=== PATIENT | female | born 1950 | race Caucasian/White ===

== ENCOUNTER 2018-04-21 05:20 | Inpatient (IN) | payer OTHER, MEDICARE, BC ==
[2018-04-21 05:52] LABS: ADD MAN DIFF? NO
[2018-04-21 05:55] LABS: WHITE BLOOD COUNT 14.7 10^3/ul (4.8-10.8)
[2018-04-21 05:55] LABS: ABNORMAL IP MESSAGE 1; BASOPHILS % 0.1 % (0.0-2.0); EOSINOPHILS # 0.1 10^3/ul (0.0-0.5); EOSINOPHILS % 0.7 % (0.0-7.0); HEMATOCRIT 27.8 % (37.0-47.0); LYMPHOCYTES # 0.4 10^3/ul (0.8-2.9); MEAN CORPUSCULAR HEMOGLOBIN 31.9 pg (29.0-33.0); MEAN CORPUSCULAR HGB CONC 32.4 g/dl (32.0-37.0); MEAN CORPUSCULAR VOLUME 98.6 fl (82.0-101.0); MEAN PLATELET VOLUME 9.7 fl (7.4-10.4); MONOCYTE # 0.6 10^3/ul (0.3-0.9); MONOCYTES % 4.2 % (0.0-11.0); NEUTROPHIL # 13.4 10^3/ul (1.6-7.5); NEUTROPHILS % 91.4 % (39.0-77.0); PLATELET COUNT 261 10^3/UL (140-415); RED BLOOD COUNT 2.82 10^6/ul (4.20-5.40); RED CELL DISTRIBUTION WIDTH 14.6 % (11.5-14.5)
[2018-04-21 06:04] LABS: POSITIVE DIFF @See below
[2018-04-21 06:20] LABS: ALANINE AMINOTRANSFERASE 53 IU/L (13-69); ALBUMIN 2.4 g/dl (3.3-4.9); ALKALINE PHOSPHATASE 92 IU/L (42-121); ANION GAP 6 (5-13); ASPARTATE AMINO TRANSFERASE 44 IU/L (15-46); BILIRUBIN,INDIRECT 0.3 mg/dl (0-1.1); BILIRUBIN,TOTAL 0.3 mg/dl (0.2-1.3); BLOOD UREA NITROGEN 62 mg/dl (7-20); CALCIUM 8.2 mg/dl (8.4-10.2); CARBON DIOXIDE 24 mmol/L (21-31); CHLORIDE 111 mmol/L (97-110); Estimated GFR 25 mL/min (>60); GLUCOSE 131 mg/dl (70-220); POTASSIUM 4.6 mmol/L (3.5-5.1); SODIUM 141 mmol/L (135-144); TOTAL PROTEIN 4.8 g/dl (6.1-8.1)
[2018-04-21 06:31] LABS: B-TYPE NATRIURETIC PEPTIDE 20000 PG/ML (0-125)
[2018-04-21] MEDS ORDERED: ASPIRIN 325 MG TAB (06:49)
[2018-04-21] MEDS: ASPIRIN 81 MG TAB PO (06:58)
[2018-04-21] MEDS: AMIODARONE 150MG/D5W BOLUS 100 ML IV (07:30)
[2018-04-21] MEDS: MAGNESIUM SULFATE 2 GM/50 ML 50 ML IVPB (07:30)
[2018-04-21] MEDS: SOD CHLORIDE 0.9% 1,000 ML IV (07:30)
[2018-04-21 09:10] LABS: CREATINE KINASE 90 IU/L (23-200)
[2018-04-21] MEDS: CEFTRIAXONE 1 GM/50 ML (PMX) 50 ML IVPB (09:15)
[2018-04-21 09:23] LABS: CK INDEX 4.1; CK-MB 3.69 ng/ml (0.0-2.4)
[2018-04-21] MEDS: AZITHROMYCIN 500MG/NS (PMX) 250 ML IVPB (09:45)
[2018-04-21] MEDS ORDERED: ONDANSETRON 4 MG INJ IV (13:00)
[2018-04-21] MEDS ORDERED: NACL 0.9% 3 ML SYG IV ×2 (13:00)
[2018-04-21] MEDS: DOCUSATE SODIUM 100 MG CAP PO (13:00)
[2018-04-21] MEDS: HEPARIN 5,000 UNIT/1 ML VIAL SC ×2 (15:09→21:44)
[2018-04-21] MEDS: INSULIN ASPART [NOVOLOG] 3 ML PEN SC ×2 (17:35→21:00)
[2018-04-21] MEDS: CLOPIDOGREL 75 MG TAB PO (19:25)
[2018-04-21] MEDS ORDERED: NON-FORMULARY/PATIENT OWN MED (Simvastatin* (Zocor*) 20 MG) PO (21:00)
[2018-04-21] MEDS: MONTELUKAST 10 MG TAB PO (21:31)
[2018-04-21] MEDS: traZODone 50 MG TAB PO (21:31)
[2018-04-21] MEDS: ATORVASTATIN 10 MG TAB PO (21:31)
[2018-04-21] MEDS: FAMOTIDINE 20 MG TAB PO (21:32)
[2018-04-22] MEDS ORDERED: DEXTROSE 50% 50 ML SYRINGE (00:21)
[2018-04-22] MEDS: DOCUSATE SODIUM 100 MG CAP PO ×2 (00:50→13:00)
[2018-04-22] MEDS: ACCU-CHEK XX ×19 (01:11→23:53)
[2018-04-22] MEDS: DEXTROSE 5%-0.45% NACL 1,000 ML IV (04:04)
[2018-04-22 05:03] LABS: ADD MAN DIFF? NO
[2018-04-22 05:13] LABS: BASOPHILS % 0.1 % (0.0-2.0); EOSINOPHILS # 0.3 10^3/ul (0.0-0.5); EOSINOPHILS % 3.4 % (0.0-7.0); HEMATOCRIT 26.3 % (37.0-47.0); HEMOGLOBIN 8.4 g/dl (12.0-16.0); LYMPHOCYTES # 0.8 10^3/ul (0.8-2.9); MEAN CORPUSCULAR HEMOGLOBIN 31.7 pg (29.0-33.0); MEAN CORPUSCULAR HGB CONC 31.9 g/dl (32.0-37.0); MEAN CORPUSCULAR VOLUME 99.2 fl (82.0-101.0); MEAN PLATELET VOLUME 9.6 fl (7.4-10.4); MONOCYTE # 0.7 10^3/ul (0.3-0.9); MONOCYTES % 8.1 % (0.0-11.0); NEUTROPHIL # 6.6 10^3/ul (1.6-7.5); NEUTROPHILS % 78.9 % (39.0-77.0); PLATELET COUNT 214 10^3/UL (140-415); RED BLOOD COUNT 2.65 10^6/ul (4.20-5.40); RED CELL DISTRIBUTION WIDTH 14.9 % (11.5-14.5)
[2018-04-22 05:13] LABS: WHITE BLOOD COUNT 8.3 10^3/ul (4.8-10.8)
[2018-04-22 05:14] LABS: HEMOGLOBIN A1C 6.3 % (0-5.9)
[2018-04-22 05:29] LABS: ALANINE AMINOTRANSFERASE 54 IU/L (13-69); ALBUMIN 2.4 g/dl (3.3-4.9); ALBUMIN/GLOBULIN RATIO 1.09; ALKALINE PHOSPHATASE 106 IU/L (42-121); ANION GAP 1 (5-13); ASPARTATE AMINO TRANSFERASE 32 IU/L (15-46); BLOOD UREA NITROGEN 55 mg/dl (7-20); CALCIUM 8.3 mg/dl (8.4-10.2); CARBON DIOXIDE 26 mmol/L (21-31); CHLORIDE 114 mmol/L (97-110); CHOL/HDL RATIO 1.7 RATIO; CHOLESTEROL 83 mg/dl (100-200); CREATININE 2.17 mg/dl (0.44-1.00); Estimated GFR 23 mL/min (>60); GLUCOSE 60 mg/dl (70-220); HDL CHOLESTEROL 47 mg/dl (35-98); LDL CHOLESTEROL,CALCULATED 20 mg/dl; MAGNESIUM 2.3 mg/dl (1.7-2.5); POTASSIUM 4.1 mmol/L (3.5-5.1); SODIUM 141 mmol/L (135-144); TOTAL PROTEIN 4.6 g/dl (6.1-8.1); TRIGLYCERIDES 79 mg/dl (0-149)
[2018-04-22] MEDS ORDERED: LEVOTHYROXINE 50 MCG TAB (05:32)
[2018-04-22] MEDS: HEPARIN 5,000 UNIT/1 ML VIAL SC ×3 (05:57→21:35)
[2018-04-22] MEDS: LEVOTHYROXINE 50 MCG TAB PO (06:01)
[2018-04-22] MEDS ORDERED: DEXTROSE 50% 50 ML SYRINGE IV (07:30)
[2018-04-22] MEDS ORDERED: GLUCOSE GEL 15 GRAM TUBE BUCCAL (07:30)
[2018-04-22] MEDS ORDERED: GLUCOSE GEL 15 GRAM TUBE PO ×2 (07:30)
[2018-04-22] MEDS ORDERED: GLUCAGON 1 MG INJ IM (07:30)
[2018-04-22] MEDS: INSULIN ASPART [NOVOLOG] 3 ML PEN SC ×4 (07:35→20:32)
[2018-04-22] MEDS: ASPIRIN (EC) 81 MG TAB PO (08:38)
[2018-04-22] MEDS: CLOPIDOGREL 75 MG TAB PO (08:38)
[2018-04-22] MEDS ORDERED: NON-FORMULARY/PATIENT OWN MED (Lactobacillus Combo No.11 (Probiotic) 1 CAP) PO (09:00)
[2018-04-22 10:33] LABS: IRON 25 ug/dl (35-150)
[2018-04-22] MEDS: TIOTROPIUM 18 MCG CAPSULE INHA DEV INH (10:33)
[2018-04-22] MEDS: LACTOBACILLUS RHAMNOSUS CAP PO (10:33)
[2018-04-22] MEDS: FLUTICASONE 0.05% 16 GM NAS SPRAY NASAL (10:33)
[2018-04-22 10:43] LABS: % IRON SATURATION 12 % SAT (22-52); TOTAL IRON BINDING CAPACITY 211 ug/dl (241-421)
[2018-04-22] MEDS: ATORVASTATIN 10 MG TAB PO (20:29)
[2018-04-22] MEDS: SOD FERRIC GLUC COMPLX 125 MG in SOD CHLORIDE 0.9% 100 ML IVPB (20:29)
[2018-04-22] MEDS: FAMOTIDINE 20 MG TAB PO (20:29)
[2018-04-22] MEDS: MONTELUKAST 10 MG TAB PO (20:29)
[2018-04-23] MEDS: ACCU-CHEK XX ×9 (01:19→08:30)
[2018-04-23] MEDS: DOCUSATE SODIUM 100 MG CAP PO ×3 (01:32→20:49)
[2018-04-23] MEDS ORDERED: HEPARIN 5,000 UNIT/1 ML VIAL SC (02:00)
[2018-04-23 05:11] LABS: ADD MAN DIFF? NO
[2018-04-23 05:28] LABS: WHITE BLOOD COUNT 8.3 10^3/ul (4.8-10.8)
[2018-04-23 05:28] LABS: BASOPHILS % 0.1 % (0.0-2.0); EOSINOPHILS # 0.3 10^3/ul (0.0-0.5); EOSINOPHILS % 3.5 % (0.0-7.0); HEMOGLOBIN 8.7 g/dl (12.0-16.0); LYMPHOCYTES # 0.7 10^3/ul (0.8-2.9); LYMPHOCYTES % 8.8 % (15.0-51.0); MEAN CORPUSCULAR HEMOGLOBIN 31.5 pg (29.0-33.0); MEAN CORPUSCULAR HGB CONC 31.1 g/dl (32.0-37.0); MEAN CORPUSCULAR VOLUME 101.4 fl (82.0-101.0); MEAN PLATELET VOLUME 9.7 fl (7.4-10.4); MONOCYTE # 0.7 10^3/ul (0.3-0.9); MONOCYTES % 8.5 % (0.0-11.0); NEUTROPHIL # 6.6 10^3/ul (1.6-7.5); NEUTROPHILS % 78.7 % (39.0-77.0); PLATELET COUNT 222 10^3/UL (140-415); RED BLOOD COUNT 2.76 10^6/ul (4.20-5.40); RED CELL DISTRIBUTION WIDTH 14.7 % (11.5-14.5)
[2018-04-23] MEDS: LEVOTHYROXINE 50 MCG TAB PO (06:03)
[2018-04-23 06:04] LABS: ANION GAP 6 (5-13); BLOOD UREA NITROGEN 56 mg/dl (7-20); CALCIUM 8.6 mg/dl (8.4-10.2); CARBON DIOXIDE 23 mmol/L (21-31); CHLORIDE 111 mmol/L (97-110); CREATININE 2.25 mg/dl (0.44-1.00); Estimated GFR 22 mL/min (>60); GLUCOSE 152 mg/dl (70-220); MAGNESIUM 2.2 mg/dl (1.7-2.5); POTASSIUM 4.6 mmol/L (3.5-5.1); SODIUM 140 mmol/L (135-144)
[2018-04-23] MEDS: FLUTICASONE 0.05% 16 GM NAS SPRAY NASAL (08:15)
[2018-04-23] MEDS: TIOTROPIUM 18 MCG CAPSULE INHA DEV INH (08:17)
[2018-04-23] MEDS: LACTOBACILLUS RHAMNOSUS CAP PO (08:27)
[2018-04-23] MEDS: ASPIRIN (EC) 81 MG TAB PO (08:28)
[2018-04-23] MEDS: CLOPIDOGREL 75 MG TAB PO (08:28)
[2018-04-23] MEDS: HEPARIN 5,000 UNIT/1 ML VIAL SC ×2 (08:29→20:59)
[2018-04-23] MEDS: INSULIN ASPART [NOVOLOG] 3 ML PEN SC ×6 (08:30→20:49)
[2018-04-23 10:01] LABS: CREATININE,URINE RANDOM 139.44 mg/dl (20-320)
[2018-04-23 10:01] LABS: SODIUM,URINE RANDOM 25 mmol/L (30-90)
[2018-04-23] MEDS: SOD FERRIC GLUC COMPLX 125 MG in SOD CHLORIDE 0.9% 100 ML IVPB (17:35)
[2018-04-23] MEDS: ATORVASTATIN 10 MG TAB PO (20:48)
[2018-04-23] MEDS: FAMOTIDINE 20 MG TAB PO (20:48)
[2018-04-23] MEDS: MONTELUKAST 10 MG TAB PO (20:48)
[2018-04-23 22:07] LABS: ADD UMIC YES; UR ASCORBIC ACID NEGATIVE (NEGATIVE); UR BACTERIA FEW /HPF (NONE SEEN); UR BILIRUBIN (Dip) NEGATIVE (NEGATIVE); UR BLOOD (Dip) 2+ mg/dL (NEGATIVE); UR CLARITY SLIGHTLY CLOUDY (CLEAR); UR COLOR YELLOW (YELLOW); UR GLUCOSE (Dip) NEGATIVE (NEGATIVE); UR KETONES (Dip) TRACE mg/dL (NEGATIVE); UR LEUKOCYTE ESTERASE (Dip) 1+ Leu/ul (NEGATIVE); UR NITRITE (Dip) NEGATIVE (NEGATIVE); UR RBC 2 /HPF (0-5); UR SPECIFIC GRAVITY (Dip) 1.018 (1.003-1.030); UR SQUAMOUS EPITHELIAL CELL FEW /HPF (FEW); UR TOTAL PROTEIN (Dip) 2+ mg/dl (NEGATIVE); UR UROBILINOGEN (Dip) NEGATIVE (NEGATIVE); UR WBC 56 /HPF (0-5)
[2018-04-23] MEDS: traZODone 50 MG TAB PO (23:21)
[2018-04-24] MEDS: LEVOTHYROXINE 50 MCG TAB PO (05:15)
[2018-04-24 07:12] LABS: ADD MAN DIFF? NO
[2018-04-24 07:18] LABS: BASOPHILS % 0.3 % (0.0-2.0); EOSINOPHILS # 0.3 10^3/ul (0.0-0.5); EOSINOPHILS % 4.2 % (0.0-7.0); HEMATOCRIT 26.7 % (37.0-47.0); HEMOGLOBIN 8.3 g/dl (12.0-16.0); LYMPHOCYTES % 12.3 % (15.0-51.0); MEAN CORPUSCULAR HEMOGLOBIN 31.2 pg (29.0-33.0); MEAN CORPUSCULAR HGB CONC 31.1 g/dl (32.0-37.0); MEAN CORPUSCULAR VOLUME 100.4 fl (82.0-101.0); MEAN PLATELET VOLUME 9.3 fl (7.4-10.4); MONOCYTE # 0.6 10^3/ul (0.3-0.9); MONOCYTES % 7.1 % (0.0-11.0); NEUTROPHIL # 5.8 10^3/ul (1.6-7.5); NEUTROPHILS % 75.7 % (39.0-77.0); PLATELET COUNT 209 10^3/UL (140-415); RED BLOOD COUNT 2.66 10^6/ul (4.20-5.40); RED CELL DISTRIBUTION WIDTH 14.7 % (11.5-14.5)
[2018-04-24 07:18] LABS: WHITE BLOOD COUNT 7.7 10^3/ul (4.8-10.8)
[2018-04-24 07:54] LABS: PHOSPHORUS 3.5 mg/dl (2.5-4.9)
[2018-04-24 08:12] LABS: ANION GAP 4 (5-13); BLOOD UREA NITROGEN 52 mg/dl (7-20); CALCIUM 8.7 mg/dl (8.4-10.2); CARBON DIOXIDE 24 mmol/L (21-31); CHLORIDE 112 mmol/L (97-110); CREATININE 1.98 mg/dl (0.44-1.00); Estimated GFR 25 mL/min (>60); GLUCOSE 177 mg/dl (70-220); POTASSIUM 4.4 mmol/L (3.5-5.1); SODIUM 140 mmol/L (135-144)
[2018-04-24] MEDS: FLUTICASONE 0.05% 16 GM NAS SPRAY NASAL (08:26)
[2018-04-24] MEDS: TIOTROPIUM 18 MCG CAPSULE INHA DEV INH (08:27)
[2018-04-24] MEDS: INSULIN ASPART [NOVOLOG] 3 ML PEN SC ×7 (08:28→21:00)
[2018-04-24] MEDS: INSULIN GLARGINE [LANTus] (100 UNITS/ML) SYG SC (08:29)
[2018-04-24] MEDS: DOCUSATE SODIUM 100 MG CAP PO ×2 (08:30→21:23)
[2018-04-24] MEDS: ASPIRIN (EC) 81 MG TAB PO (08:30)
[2018-04-24] MEDS: LACTOBACILLUS RHAMNOSUS CAP PO (08:30)
[2018-04-24] MEDS: CLOPIDOGREL 75 MG TAB PO (08:30)
[2018-04-24] MEDS: HEPARIN 5,000 UNIT/1 ML VIAL SC ×2 (08:31→21:32)
[2018-04-24] MEDS: SOD FERRIC GLUC COMPLX 125 MG in SOD CHLORIDE 0.9% 100 ML IVPB (12:56)
[2018-04-24 17:01] LABS: CREATININE, RANDOM URINE 132 mg/dL (20-275); MICROALBUMIN 111.9 mg/dL; MICROALBUMIN/CREATININE RATIO 848 (<30)
[2018-04-24] MEDS: ATORVASTATIN 10 MG TAB PO (21:23)
[2018-04-24] MEDS: FAMOTIDINE 20 MG TAB PO (21:23)
[2018-04-24] MEDS: MONTELUKAST 10 MG TAB PO (21:23)
[2018-04-25 05:52] LABS: ADD MAN DIFF? NO
[2018-04-25 05:57] LABS: WHITE BLOOD COUNT 8.7 10^3/ul (4.8-10.8)
[2018-04-25 05:57] LABS: BASOPHILS % 0.3 % (0.0-2.0); EOSINOPHILS # 0.3 10^3/ul (0.0-0.5); EOSINOPHILS % 3.9 % (0.0-7.0); HEMATOCRIT 27.7 % (37.0-47.0); HEMOGLOBIN 8.8 g/dl (12.0-16.0); LYMPHOCYTES % 11.6 % (15.0-51.0); MEAN CORPUSCULAR HEMOGLOBIN 31.9 pg (29.0-33.0); MEAN CORPUSCULAR HGB CONC 31.8 g/dl (32.0-37.0); MEAN CORPUSCULAR VOLUME 100.4 fl (82.0-101.0); MEAN PLATELET VOLUME 9.7 fl (7.4-10.4); MONOCYTE # 0.7 10^3/ul (0.3-0.9); MONOCYTES % 7.8 % (0.0-11.0); NEUTROPHIL # 6.6 10^3/ul (1.6-7.5); NEUTROPHILS % 75.8 % (39.0-77.0); PLATELET COUNT 230 10^3/UL (140-415); RED BLOOD COUNT 2.76 10^6/ul (4.20-5.40); RED CELL DISTRIBUTION WIDTH 14.7 % (11.5-14.5)
[2018-04-25] MEDS: LEVOTHYROXINE 50 MCG TAB PO (06:33)
[2018-04-25 06:39] LABS: ANION GAP 3 (5-13); BLOOD UREA NITROGEN 48 mg/dl (7-20); CALCIUM 8.8 mg/dl (8.4-10.2); CARBON DIOXIDE 26 mmol/L (21-31); CHLORIDE 113 mmol/L (97-110); CREATININE 1.92 mg/dl (0.44-1.00); Estimated GFR 26 mL/min (>60); GLUCOSE 74 mg/dl (70-220); POTASSIUM 4.2 mmol/L (3.5-5.1); SODIUM 142 mmol/L (135-144)
[2018-04-25] MEDS: INSULIN ASPART [NOVOLOG] 3 ML PEN SC ×7 (08:00→21:00)
[2018-04-25] MEDS: INSULIN GLARGINE [LANTus] (100 UNITS/ML) SYG SC (08:04)
[2018-04-25] MEDS: HEPARIN 5,000 UNIT/1 ML VIAL SC ×2 (08:05→20:37)
[2018-04-25] MEDS: ASPIRIN (EC) 81 MG TAB PO (08:05)
[2018-04-25] MEDS: DOCUSATE SODIUM 100 MG CAP PO ×2 (08:29→20:21)
[2018-04-25] MEDS: CLOPIDOGREL 75 MG TAB PO (08:29)
[2018-04-25] MEDS: LACTOBACILLUS RHAMNOSUS CAP PO (08:29)
[2018-04-25] MEDS: TIOTROPIUM 18 MCG CAPSULE INHA DEV INH (08:38)
[2018-04-25] MEDS: FLUTICASONE 0.05% 16 GM NAS SPRAY NASAL (08:38)
[2018-04-25] MEDS: SOD FERRIC GLUC COMPLX 125 MG in SOD CHLORIDE 0.9% 100 ML IVPB (13:10)
[2018-04-25] MEDS: ALBUTEROL 0.083% (NEB) 2.5 MG/3 ML AMP NEB (13:55)
[2018-04-25] MEDS: ARFORMOTEROL TARTRATE 15MCG/2 ML AMP NEB ×2 (15:00→20:52)
[2018-04-25] MEDS: FAMOTIDINE 20 MG TAB PO (20:21)
[2018-04-25] MEDS: MONTELUKAST 10 MG TAB PO (20:21)
[2018-04-25] MEDS: ATORVASTATIN 10 MG TAB PO (20:21)
[2018-04-25] MEDS: hydrALAzine 20 MG INJ IV (21:28)
[2018-04-26] MEDS: LEVOTHYROXINE 50 MCG TAB PO (06:31)
[2018-04-26 06:47] LABS: ANION GAP 0 (5-13); BLOOD UREA NITROGEN 41 mg/dl (7-20); CALCIUM 8.9 mg/dl (8.4-10.2); CARBON DIOXIDE 26 mmol/L (21-31); CHLORIDE 117 mmol/L (97-110); Estimated GFR 28 mL/min (>60); GLUCOSE 102 mg/dl (70-220); MAGNESIUM 1.8 mg/dl (1.7-2.5); PHOSPHORUS 3.1 mg/dl (2.5-4.9); POTASSIUM 4.4 mmol/L (3.5-5.1); SODIUM 143 mmol/L (135-144)
[2018-04-26] MEDS: INSULIN ASPART [NOVOLOG] 3 ML PEN SC ×7 (08:00→21:00)
[2018-04-26] MEDS: ARFORMOTEROL TARTRATE 15MCG/2 ML AMP NEB ×2 (08:06→19:25)
[2018-04-26] MEDS: INSULIN GLARGINE [LANTus] (100 UNITS/ML) SYG SC (08:08)
[2018-04-26] MEDS: HEPARIN 5,000 UNIT/1 ML VIAL SC ×2 (08:09→21:26)
[2018-04-26] MEDS: CLOPIDOGREL 75 MG TAB PO (08:09)
[2018-04-26] MEDS: LACTOBACILLUS RHAMNOSUS CAP PO (08:09)
[2018-04-26] MEDS: ASPIRIN (EC) 81 MG TAB PO (08:09)
[2018-04-26] MEDS: DOCUSATE SODIUM 100 MG CAP PO ×2 (08:09→21:23)
[2018-04-26] MEDS: FLUTICASONE 0.05% 16 GM NAS SPRAY NASAL (08:10)
[2018-04-26] MEDS: TIOTROPIUM 18 MCG CAPSULE INHA DEV INH (09:30)
[2018-04-26] MEDS: SOD FERRIC GLUC COMPLX 125 MG in SOD CHLORIDE 0.9% 100 ML IVPB (12:36)
[2018-04-26] MEDS: hydrALAzine 20 MG INJ IV (14:45)
[2018-04-26 15:29] LABS: ADD MAN DIFF? NO
[2018-04-26 15:30] LABS: BASOPHIL # 0.1 10^3/ul (0.0-0.1); BASOPHILS % 0.5 % (0.0-2.0); EOSINOPHILS # 0.4 10^3/ul (0.0-0.5); EOSINOPHILS % 3.3 % (0.0-7.0); HEMATOCRIT 30.2 % (37.0-47.0); MEAN CORPUSCULAR HGB CONC 29.8 g/dl (32.0-37.0); MEAN CORPUSCULAR VOLUME 104.1 fl (82.0-101.0); MEAN PLATELET VOLUME 9.4 fl (7.4-10.4); MONOCYTE # 0.7 10^3/ul (0.3-0.9); MONOCYTES % 6.5 % (0.0-11.0); NEUTROPHIL # 7.5 10^3/ul (1.6-7.5); NEUTROPHILS % 70.3 % (39.0-77.0); PLATELET COUNT 234 10^3/UL (140-415); RED CELL DISTRIBUTION WIDTH 15.3 % (11.5-14.5)
[2018-04-26 15:30] LABS: WHITE BLOOD COUNT 10.7 10^3/ul (4.8-10.8)
[2018-04-26 15:31] LABS: AADO2 Arterial 158.7 mmHg (7.0-24.0); Allen Test ACCEPTAB; Arterial Base Excess -8.5 mmol/L (-3.0-3); Arterial Blood Gas Oxygen Sat 98.5 mmHG (95.0-98.0); Arterial COHb 0.3 % (0.0-3.0); Arterial Fraction of Oxyhgb 97.9 % (93.0-99.0); Arterial HCO3 18.7 mmol/L (22.0-26.0); Arterial MetHb 0.3 % (0.0-1.5); Arterial pCO2 45.8 mmhg (35-45); MODE MASK - SIMPLE; Site Right Radial
[2018-04-26] MEDS: ALBUTEROL 0.083% (NEB) 2.5 MG/3 ML AMP NEB ×2 (15:41→20:31)
[2018-04-26] MEDS: LORAZEPAM 2 MG INJ IV (15:48)
[2018-04-26] MEDS: FUROSEMIDE 20 MG INJ IV (15:49)
[2018-04-26 15:50] LABS: ALANINE AMINOTRANSFERASE 38 IU/L (13-69); ALBUMIN 2.7 g/dl (3.3-4.9); ALBUMIN/GLOBULIN RATIO 1.22; ALKALINE PHOSPHATASE 103 IU/L (42-121); ANION GAP 9 (5-13); ASPARTATE AMINO TRANSFERASE 37 IU/L (15-46); BILIRUBIN,INDIRECT 0.1 mg/dl (0-1.1); BILIRUBIN,TOTAL 0.1 mg/dl (0.2-1.3); BLOOD UREA NITROGEN 52 mg/dl (7-20); CALCIUM 9.1 mg/dl (8.4-10.2); CARBON DIOXIDE 19 mmol/L (21-31); CHLORIDE 115 mmol/L (97-110); CREATININE 1.77 mg/dl (0.44-1.00); Estimated GFR 29 mL/min (>60); GLUCOSE 144 mg/dl (70-220); POTASSIUM 5.6 mmol/L (3.5-5.1); SODIUM 143 mmol/L (135-144); TOTAL PROTEIN 4.9 g/dl (6.1-8.1)
[2018-04-26] MEDS ORDERED: DEXTROSE 50% 50 ML SYRINGE IV (16:30)
[2018-04-26] MEDS: INSULIN REGULAR, HUMAN 100 UNIT/1 ML 3ML VIAL IVP (17:55)
[2018-04-26] MEDS: DEXTROSE 50% 50 ML SYRINGE IV ×2 (17:56→21:24)
[2018-04-26] MEDS: FAMOTIDINE 20 MG TAB PO (21:23)
[2018-04-26] MEDS: ATORVASTATIN 10 MG TAB PO (21:23)
[2018-04-26] MEDS: MONTELUKAST 10 MG TAB PO (21:23)
[2018-04-26] MEDS: ALBUTEROL 0.083% (NEB) 2.5 MG/3 ML AMP HHN (21:34)
[2018-04-26] MEDS: SODIUM POLYSTYRENE 15 GM KIT (POWDER + SORBITOL) GTB (21:41)
[2018-04-27] MEDS: LEVOTHYROXINE 50 MCG TAB PO (07:04)
[2018-04-27 07:16] LABS: ALBUMIN 2.5 g/dl (3.3-4.9); ANION GAP 0 (5-13); BLOOD UREA NITROGEN 56 mg/dl (7-20); CALCIUM 8.9 mg/dl (8.4-10.2); CARBON DIOXIDE 28 mmol/L (21-31); CHLORIDE 117 mmol/L (97-110); CREATININE 2.01 mg/dl (0.44-1.00); GLUCOSE 52 mg/dl (70-220); MAGNESIUM 1.8 mg/dl (1.7-2.5); PHOSPHORUS 3.3 mg/dl (2.5-4.9); POTASSIUM 4.1 mmol/L (3.5-5.1); SODIUM 145 mmol/L (135-144)
[2018-04-27] MEDS: INSULIN ASPART [NOVOLOG] 3 ML PEN SC ×7 (08:31→20:51)
[2018-04-27] MEDS: LACTOBACILLUS RHAMNOSUS CAP PO (08:41)
[2018-04-27] MEDS: ASPIRIN (EC) 81 MG TAB PO (08:42)
[2018-04-27] MEDS: TIOTROPIUM 18 MCG CAPSULE INHA DEV INH (08:42)
[2018-04-27] MEDS: CLOPIDOGREL 75 MG TAB PO (08:43)
[2018-04-27] MEDS: FLUTICASONE 0.05% 16 GM NAS SPRAY NASAL (08:43)
[2018-04-27] MEDS: HEPARIN 5,000 UNIT/1 ML VIAL SC ×2 (08:51→22:02)
[2018-04-27] MEDS: INSULIN GLARGINE [LANTus] (100 UNITS/ML) SYG SC (08:52)
[2018-04-27] MEDS: DOCUSATE SODIUM 100 MG CAP PO ×2 (08:52→20:45)
[2018-04-27] MEDS: ARFORMOTEROL TARTRATE 15MCG/2 ML AMP NEB ×2 (09:09→19:42)
[2018-04-27] MEDS: LACTATED RINGER'S 500 ML IV (11:52)
[2018-04-27] MEDS: ATORVASTATIN 10 MG TAB PO (20:46)
[2018-04-27] MEDS: FAMOTIDINE 20 MG TAB PO (20:46)
[2018-04-27] MEDS: MONTELUKAST 10 MG TAB PO (20:46)
[2018-04-28] MEDS: LEVOTHYROXINE 50 MCG TAB PO (06:09)
[2018-04-28 06:11] LABS: ADD MAN DIFF? NO
[2018-04-28 06:24] LABS: WHITE BLOOD COUNT 5.9 10^3/ul (4.8-10.8)
[2018-04-28 06:24] LABS: ABNORMAL IP MESSAGE 1; BASOPHILS % 0.2 % (0.0-2.0); EOSINOPHILS # 0.2 10^3/ul (0.0-0.5); EOSINOPHILS % 3.9 % (0.0-7.0); HEMATOCRIT 21.7 % (37.0-47.0); LYMPHOCYTES # 0.9 10^3/ul (0.8-2.9); LYMPHOCYTES % 15.7 % (15.0-51.0); MEAN CORPUSCULAR HGB CONC 30.4 g/dl (32.0-37.0); MEAN CORPUSCULAR VOLUME 105.3 fl (82.0-101.0); MEAN PLATELET VOLUME 9.3 fl (7.4-10.4); MONOCYTE # 0.5 10^3/ul (0.3-0.9); MONOCYTES % 8.1 % (0.0-11.0); NEUTROPHIL # 4.2 10^3/ul (1.6-7.5); NEUTROPHILS % 71.8 % (39.0-77.0); PLATELET COUNT 159 10^3/UL (140-415); RED BLOOD COUNT 2.06 10^6/ul (4.20-5.40)
[2018-04-28 06:33] LABS: HEMOGLOBIN 6.6 g/dl (12.0-16.0); POSITIVE DIFF @See below
[2018-04-28 06:35] LABS: ALANINE AMINOTRANSFERASE 47 IU/L (13-69); ALBUMIN 2.2 g/dl (3.3-4.9); ALBUMIN/GLOBULIN RATIO 1.04; ALKALINE PHOSPHATASE 80 IU/L (42-121); ANION GAP -3 (5-13); ASPARTATE AMINO TRANSFERASE 26 IU/L (15-46); BILIRUBIN,INDIRECT 0.1 mg/dl (0-1.1); BILIRUBIN,TOTAL 0.1 mg/dl (0.2-1.3); BLOOD UREA NITROGEN 50 mg/dl (7-20); CALCIUM 8.7 mg/dl (8.4-10.2); CARBON DIOXIDE 28 mmol/L (21-31); CHLORIDE 117 mmol/L (97-110); CREATININE 2.03 mg/dl (0.44-1.00); Estimated GFR 24 mL/min (>60); GLUCOSE 112 mg/dl (70-220); POTASSIUM 4.3 mmol/L (3.5-5.1); SODIUM 142 mmol/L (135-144); TOTAL PROTEIN 4.3 g/dl (6.1-8.1)
[2018-04-28] MEDS: INSULIN ASPART [NOVOLOG] 3 ML PEN SC ×7 (07:55→20:44)
[2018-04-28 08:04] LABS: BAND NEUTROPHILS #M 0.2 10^3/ul (0.0-0.6); BAND NEUTROPHILS % (M) 5 % (0-4); BASOPHILS % (M) 1 % (0-2); EOSINOPHILS % (M) 2 % (0-7); LYMPHOCYTES #M 0.7 10^3/ul (0.8-2.9); LYMPHOCYTES % (M) 13 % (15-51); MONOCYTES % (M) 1 % (0-11); OVALOCYTES 1+ (0-0); PLATELET ESTIMATE NORMAL; POIKILOCYTOSIS 1+ (0-0); POLYCHROMASIA 2+ (0-0); REACTIVE LYMPHOCYTES% (M) 1 % (0-0); SEG NEUT #M 4.6 10^3/ul (1.6-7.5); SEGMENTED NEUTROPHILS (M) % 77 % (39-77); SMUDGE%M 6 % (0-0)
[2018-04-28] MEDS: TIOTROPIUM 18 MCG CAPSULE INHA DEV INH (08:35)
[2018-04-28] MEDS: FLUTICASONE 0.05% 16 GM NAS SPRAY NASAL (08:35)
[2018-04-28] MEDS: LACTOBACILLUS RHAMNOSUS CAP PO (08:35)
[2018-04-28] MEDS: DOCUSATE SODIUM 100 MG CAP PO ×2 (08:35→20:29)
[2018-04-28] MEDS: ASPIRIN (EC) 81 MG TAB PO (08:36)
[2018-04-28] MEDS: CLOPIDOGREL 75 MG TAB PO (08:36)
[2018-04-28] MEDS: INSULIN GLARGINE [LANTus] (100 UNITS/ML) SYG SC (08:40)
[2018-04-28] MEDS: HEPARIN 5,000 UNIT/1 ML VIAL SC ×2 (08:44→20:43)
[2018-04-28 09:10] LABS: PATH REVIEW? YES
[2018-04-28] MEDS: ARFORMOTEROL TARTRATE 15MCG/2 ML AMP NEB ×2 (09:24→20:46)
[2018-04-28] MEDS: SOD CHLORIDE 0.9% 250 ML IV* (09:33)
[2018-04-28] MEDS: EPOETIN 10000 UNITS/1 ML INJ (ESRD) SC (12:04)
[2018-04-28 12:48] LABS: IMMEDIATE SPIN CROSSMATCH 1 2
[2018-04-28 16:35] LABS: OCCULT BLOOD STOOL POSITIVE (NEGATIVE)
[2018-04-28] MEDS: MONTELUKAST 10 MG TAB PO (20:29)
[2018-04-28] MEDS: FAMOTIDINE 20 MG TAB PO (20:29)
[2018-04-28] MEDS: ATORVASTATIN 10 MG TAB PO (20:30)
[2018-04-28] MEDS: hydrALAzine 20 MG INJ IV (20:30)
[2018-04-28] MEDS: CEFEPIME 1GM/50 ML (PMX) 50 ML IVPB (20:31)
[2018-04-29] MEDS: ACETAMINOPHEN 325 MG TAB PO (01:11)
[2018-04-29] MEDS: ALBUTEROL 0.083% (NEB) 2.5 MG/3 ML AMP NEB (02:42)
[2018-04-29] MEDS: PANTOPRAZOLE 40 MG INJ IV ×2 (05:16→17:29)
[2018-04-29] MEDS: LEVOTHYROXINE 50 MCG TAB PO (06:21)
[2018-04-29] MEDS: INSULIN ASPART [NOVOLOG] 3 ML PEN SC ×7 (07:39→20:36)
[2018-04-29 07:56] LABS: ADD MAN DIFF? NO
[2018-04-29 08:08] LABS: BASOPHILS % 0.5 % (0.0-2.0); EOSINOPHILS # 0.2 10^3/ul (0.0-0.5); EOSINOPHILS % 3.8 % (0.0-7.0); HEMATOCRIT 30.9 % (37.0-47.0); HEMOGLOBIN 9.8 g/dl (12.0-16.0); LYMPHOCYTES # 0.9 10^3/ul (0.8-2.9); LYMPHOCYTES % 14.1 % (15.0-51.0); MEAN CORPUSCULAR HEMOGLOBIN 30.7 pg (29.0-33.0); MEAN CORPUSCULAR HGB CONC 31.7 g/dl (32.0-37.0); MEAN CORPUSCULAR VOLUME 96.9 fl (82.0-101.0); MEAN PLATELET VOLUME 9.7 fl (7.4-10.4); MONOCYTE # 0.6 10^3/ul (0.3-0.9); MONOCYTES % 9.2 % (0.0-11.0); NEUTROPHIL # 4.3 10^3/ul (1.6-7.5); NEUTROPHILS % 71.9 % (39.0-77.0); PLATELET COUNT 146 10^3/UL (140-415); RED BLOOD COUNT 3.19 10^6/ul (4.20-5.40); RED CELL DISTRIBUTION WIDTH 18.6 % (11.5-14.5)
[2018-04-29] MEDS: LACTOBACILLUS RHAMNOSUS CAP PO (08:33)
[2018-04-29] MEDS: DOCUSATE SODIUM 100 MG CAP PO ×2 (08:33→20:17)
[2018-04-29] MEDS: TIOTROPIUM 18 MCG CAPSULE INHA DEV INH (08:34)
[2018-04-29] MEDS: FLUTICASONE 0.05% 16 GM NAS SPRAY NASAL (08:34)
[2018-04-29] MEDS: INSULIN GLARGINE [LANTus] (100 UNITS/ML) SYG SC (08:36)
[2018-04-29] MEDS: HEPARIN 5,000 UNIT/1 ML VIAL SC ×2 (08:39→20:29)
[2018-04-29 08:40] LABS: ALBUMIN 2.3 g/dl (3.3-4.9); ANION GAP 2 (5-13); BLOOD UREA NITROGEN 52 mg/dl (7-20); CALCIUM 8.8 mg/dl (8.4-10.2); CARBON DIOXIDE 26 mmol/L (21-31); CHLORIDE 115 mmol/L (97-110); CREATINE KINASE < 20 IU/L (23-200); CREATININE 1.94 mg/dl (0.44-1.00); GLUCOSE 128 mg/dl (70-220); PHOSPHORUS 3.3 mg/dl (2.5-4.9); POTASSIUM 4.2 mmol/L (3.5-5.1); SODIUM 143 mmol/L (135-144)
[2018-04-29 08:46] LABS: CK-MB 1.35 ng/ml (0.0-2.4)
[2018-04-29 08:53] LABS: MAGNESIUM 1.7 mg/dl (1.7-2.5)
[2018-04-29 08:53] LABS: PHOSPHORUS 3.4 mg/dl (2.5-4.9)
[2018-04-29 08:56] LABS: TROPONIN-I 0.303 ng/ml (0.000-0.120)
[2018-04-29] MEDS: ARFORMOTEROL TARTRATE 15MCG/2 ML AMP NEB ×2 (10:04→19:54)
[2018-04-29 14:15] LABS: PLATELET COUNT 124 10^3/UL (140-415)
[2018-04-29 14:35] LABS: INR 0.99; PROTIME 13.2 Sec (11.9-14.9)
[2018-04-29 14:36] LABS: PARTIAL THROMBOPLASTIN TIME 33.5 Sec (23.0-35.0)
[2018-04-29 15:41] LABS: THROMBIN TIME 15.7 SEC (13.8-19.1)
[2018-04-29] MEDS: hydrALAzine 20 MG INJ IV (16:38)
[2018-04-29 16:53] LABS: FLD RBC 0 /uL; FLD WBC 35 /cmm
[2018-04-29 17:17] LABS: FLUID GLUCOSE 161 mg/dl
[2018-04-29 17:18] LABS: FLUID LD 185 U/L; FLUID TOTAL PROTEIN < 2.0 g/dl; FLUID TYPE PLEURAL FLUID
[2018-04-29] MEDS: FLUCONAZOLE 200 MG (PMX) 100 ML IVPB (18:06)
[2018-04-29 18:17] LABS: FLD TYPE PLEURAL
[2018-04-29 18:17] LABS: FLD CLARITY CLEAR; FLD COLOR YELLOW
[2018-04-29] MEDS: CEFEPIME 1GM/50 ML (PMX) 50 ML IVPB (20:17)
[2018-04-29] MEDS: ATORVASTATIN 10 MG TAB PO (20:18)
[2018-04-29] MEDS: MONTELUKAST 10 MG TAB PO (20:18)
[2018-04-29] MEDS: FAMOTIDINE 20 MG TAB PO (20:18)
[2018-04-29] MEDS: GUAIFENESIN/DM 5ML CUP PO (21:15)
[2018-04-30] MEDS: PANTOPRAZOLE 40 MG INJ IV ×2 (05:41→17:34)
[2018-04-30] MEDS: LEVOTHYROXINE 50 MCG TAB PO (06:49)
[2018-04-30 07:13] LABS: ADD MAN DIFF? NO
[2018-04-30 07:16] LABS: WHITE BLOOD COUNT 5.9 10^3/ul (4.8-10.8)
[2018-04-30 07:16] LABS: BASOPHILS % 0.3 % (0.0-2.0); EOSINOPHILS # 0.2 10^3/ul (0.0-0.5); EOSINOPHILS % 2.7 % (0.0-7.0); HEMATOCRIT 32.1 % (37.0-47.0); LYMPHOCYTES # 0.8 10^3/ul (0.8-2.9); LYMPHOCYTES % 13.7 % (15.0-51.0); MEAN CORPUSCULAR HEMOGLOBIN 30.9 pg (29.0-33.0); MEAN CORPUSCULAR HGB CONC 31.2 g/dl (32.0-37.0); MEAN CORPUSCULAR VOLUME 99.1 fl (82.0-101.0); MEAN PLATELET VOLUME 10.1 fl (7.4-10.4); MONOCYTE # 0.5 10^3/ul (0.3-0.9); MONOCYTES % 7.7 % (0.0-11.0); NEUTROPHIL # 4.4 10^3/ul (1.6-7.5); NEUTROPHILS % 75.1 % (39.0-77.0); PLATELET COUNT 142 10^3/UL (140-415); RED BLOOD COUNT 3.24 10^6/ul (4.20-5.40); RED CELL DISTRIBUTION WIDTH 18.5 % (11.5-14.5)
[2018-04-30 07:50] LABS: ANION GAP 5 (5-13); BLOOD UREA NITROGEN 50 mg/dl (7-20); CALCIUM 8.9 mg/dl (8.4-10.2); CARBON DIOXIDE 25 mmol/L (21-31); CHLORIDE 112 mmol/L (97-110); CREATININE 1.87 mg/dl (0.44-1.00); Estimated GFR 27 mL/min (>60); GLUCOSE 130 mg/dl (70-220); MAGNESIUM 1.8 mg/dl (1.7-2.5); PHOSPHORUS 3.1 mg/dl (2.5-4.9); SODIUM 142 mmol/L (135-144)
[2018-04-30] MEDS: TIOTROPIUM 18 MCG CAPSULE INHA DEV INH (08:09)
[2018-04-30] MEDS: FLUTICASONE 0.05% 16 GM NAS SPRAY NASAL (08:09)
[2018-04-30] MEDS: DOCUSATE SODIUM 100 MG CAP PO ×2 (08:10→20:23)
[2018-04-30] MEDS: LACTOBACILLUS RHAMNOSUS CAP PO (08:10)
[2018-04-30] MEDS: INSULIN ASPART [NOVOLOG] 3 ML PEN SC ×7 (08:12→20:38)
[2018-04-30] MEDS: INSULIN GLARGINE [LANTus] (100 UNITS/ML) SYG SC (08:13)
[2018-04-30] MEDS: HEPARIN 5,000 UNIT/1 ML VIAL SC ×3 (08:13→21:00)
[2018-04-30] MEDS: ARFORMOTEROL TARTRATE 15MCG/2 ML AMP NEB ×2 (08:27→19:53)
[2018-04-30] MEDS: FUROSEMIDE 20 MG INJ IV (12:58)
[2018-04-30] MEDS: FLUCONAZOLE 200 MG (PMX) 100 ML IVPB (16:16)
[2018-04-30] MEDS: GUAIFENESIN/DM 5ML CUP PO ×2 (18:21→23:54)
[2018-04-30] MEDS: CEFEPIME 1GM/50 ML (PMX) 50 ML IVPB (20:21)
[2018-04-30] MEDS: ATORVASTATIN 10 MG TAB PO (20:23)
[2018-04-30] MEDS: MONTELUKAST 10 MG TAB PO (20:24)
[2018-04-30] MEDS: FAMOTIDINE 20 MG TAB PO (20:24)
[2018-05-01] MEDS: PANTOPRAZOLE 40 MG INJ IV ×2 (05:48→18:07)
[2018-05-01] MEDS: LEVOTHYROXINE 50 MCG TAB PO (06:09)
[2018-05-01 06:37] LABS: ADD MAN DIFF? NO
[2018-05-01 06:44] LABS: WHITE BLOOD COUNT 5.1 10^3/ul (4.8-10.8)
[2018-05-01 06:44] LABS: BASOPHILS % 0.8 % (0.0-2.0); EOSINOPHILS # 0.2 10^3/ul (0.0-0.5); EOSINOPHILS % 3.9 % (0.0-7.0); HEMATOCRIT 31.5 % (37.0-47.0); HEMOGLOBIN 9.7 g/dl (12.0-16.0); LYMPHOCYTES # 0.9 10^3/ul (0.8-2.9); LYMPHOCYTES % 18.3 % (15.0-51.0); MEAN CORPUSCULAR HEMOGLOBIN 30.5 pg (29.0-33.0); MEAN CORPUSCULAR HGB CONC 30.8 g/dl (32.0-37.0); MEAN CORPUSCULAR VOLUME 99.1 fl (82.0-101.0); MEAN PLATELET VOLUME 9.9 fl (7.4-10.4); MONOCYTE # 0.5 10^3/ul (0.3-0.9); MONOCYTES % 9.4 % (0.0-11.0); NEUTROPHIL # 3.4 10^3/ul (1.6-7.5); NEUTROPHILS % 67.2 % (39.0-77.0); PLATELET COUNT 144 10^3/UL (140-415); RED BLOOD COUNT 3.18 10^6/ul (4.20-5.40); RED CELL DISTRIBUTION WIDTH 17.9 % (11.5-14.5)
[2018-05-01 07:10] LABS: ANION GAP 6 (5-13); BLOOD UREA NITROGEN 47 mg/dl (7-20); CALCIUM 8.9 mg/dl (8.4-10.2); CARBON DIOXIDE 26 mmol/L (21-31); CHLORIDE 112 mmol/L (97-110); CREATININE 1.92 mg/dl (0.44-1.00); Estimated GFR 26 mL/min (>60); GLUCOSE 92 mg/dl (70-220); MAGNESIUM 1.8 mg/dl (1.7-2.5); POTASSIUM 3.9 mmol/L (3.5-5.1); SODIUM 144 mmol/L (135-144)
[2018-05-01] MEDS: INSULIN ASPART [NOVOLOG] 3 ML PEN SC ×7 (07:50→20:16)
[2018-05-01] MEDS: INSULIN GLARGINE [LANTus] (100 UNITS/ML) SYG SC (07:50)
[2018-05-01] MEDS: FLUTICASONE 0.05% 16 GM NAS SPRAY NASAL (08:14)
[2018-05-01] MEDS: TIOTROPIUM 18 MCG CAPSULE INHA DEV INH (08:15)
[2018-05-01] MEDS: LACTOBACILLUS RHAMNOSUS CAP PO (08:15)
[2018-05-01] MEDS: DOCUSATE SODIUM 100 MG CAP PO ×2 (08:15→20:24)
[2018-05-01] MEDS: HEPARIN 5,000 UNIT/1 ML VIAL SC ×2 (08:16→20:30)
[2018-05-01] MEDS: ARFORMOTEROL TARTRATE 15MCG/2 ML AMP NEB ×2 (10:06→19:29)
[2018-05-01] MEDS: hydrALAzine 20 MG INJ IV (11:36)
[2018-05-01] MEDS: DEXTROSE 5%-0.45% NACL 1,000 ML IV (13:42)
[2018-05-01] MEDS ORDERED: LABETALOL HCL 20MG INJ IV (17:30)
[2018-05-01] MEDS ORDERED: ONDANSETRON 4 MG INJ IV (17:30)
[2018-05-01] MEDS ORDERED: hydrALAzine 20 MG INJ IV (17:30)
[2018-05-01] MEDS: FLUCONAZOLE 200 MG (PMX) 100 ML IVPB (18:00)
[2018-05-01] MEDS: LIDOCAINE 2% (SDV) 5 ML INJ (19:44)
[2018-05-01] MEDS: LIDOCAINE 1% (MPF) 5 ML VIAL (19:44)
[2018-05-01] MEDS: ETOMIDATE 20 MG INJ (19:44)
[2018-05-01] MEDS: hydrALAzine 20 MG INJ (19:44)
[2018-05-01] MEDS: CEFEPIME 1GM/50 ML (PMX) 50 ML IVPB (20:17)
[2018-05-01] MEDS: ATORVASTATIN 10 MG TAB PO (20:24)
[2018-05-01] MEDS: MONTELUKAST 10 MG TAB PO (20:34)
[2018-05-01] MEDS: GUAIFENESIN/DM 5ML CUP PO (20:49)
[2018-05-02] MEDS: LEVOTHYROXINE 50 MCG TAB PO (06:41)
[2018-05-02] MEDS: PANTOPRAZOLE 40 MG INJ IV ×2 (06:41→21:03)
[2018-05-02 07:34] LABS: ANION GAP 3 (5-13); BLOOD UREA NITROGEN 42 mg/dl (7-20); CALCIUM 8.6 mg/dl (8.4-10.2); CARBON DIOXIDE 27 mmol/L (21-31); CHLORIDE 111 mmol/L (97-110); Estimated GFR 26 mL/min (>60); GLUCOSE 106 mg/dl (70-220); MAGNESIUM 1.7 mg/dl (1.7-2.5); PHOSPHORUS 2.8 mg/dl (2.5-4.9); POTASSIUM 3.9 mmol/L (3.5-5.1); SODIUM 141 mmol/L (135-144)
[2018-05-02] MEDS: INSULIN ASPART [NOVOLOG] 3 ML PEN SC ×7 (07:55→21:00)
[2018-05-02] MEDS: FLUTICASONE 0.05% 16 GM NAS SPRAY NASAL (08:19)
[2018-05-02] MEDS: DOCUSATE SODIUM 100 MG CAP PO ×2 (08:19→20:12)
[2018-05-02] MEDS: FUROSEMIDE 20 MG INJ IV (08:20)
[2018-05-02] MEDS: INSULIN GLARGINE [LANTus] (100 UNITS/ML) SYG SC (08:23)
[2018-05-02] MEDS: HEPARIN 5,000 UNIT/1 ML VIAL SC ×2 (08:23→20:32)
[2018-05-02] MEDS: TIOTROPIUM 18 MCG CAPSULE INHA DEV INH (08:27)
[2018-05-02] MEDS: ARFORMOTEROL TARTRATE 15MCG/2 ML AMP NEB ×2 (09:13→21:12)
[2018-05-02] MEDS: LACTOBACILLUS RHAMNOSUS CAP PO (09:31)
[2018-05-02] MEDS ORDERED: LABETALOL HCL 20MG INJ IV (20:00)
[2018-05-02] MEDS ORDERED: hydrALAzine 20 MG INJ IV (20:00)
[2018-05-02] MEDS: hydrALAzine 20 MG INJ IV (20:02)
[2018-05-02] MEDS: MONTELUKAST 10 MG TAB PO (20:11)
[2018-05-02] MEDS: ATORVASTATIN 10 MG TAB PO (20:11)
[2018-05-03] MEDS: PANTOPRAZOLE 40 MG INJ IV (06:00)
[2018-05-03] MEDS: LEVOTHYROXINE 50 MCG TAB PO (06:59)
[2018-05-03] MEDS: ARFORMOTEROL TARTRATE 15MCG/2 ML AMP NEB (08:24)
[2018-05-03] MEDS ORDERED: CLOPIDOGREL 75 MG TAB PO (09:00)
[2018-05-03] MEDS ORDERED: ASPIRIN (EC) 81 MG TAB PO (09:00)
== END 2018-05-03 09:00 | DRG 637 ==
LOC: TEL 04-26 20:12 → E/R 05:20 → PP2 04-23 14:01 → ICU 07:29
PROVIDERS: Internal Medicine
PROC: 0DJ08ZZ Inspection of Upper Intestinal Tract, Via Natural or Artificial Opening Endoscopic (ICD-10-PCS; principal; 2018-05-01 16:00)
PROC: 0W993ZZ Drainage of Right Pleural Cavity, Percutaneous Approach (ICD-10-PCS; 2018-05-01 16:10)
PROC: 30233N1 Transfusion of Nonautologous Red Blood Cells into Peripheral Vein, Percutaneous Approach (ICD-10-PCS; 2018-05-01 16:10)
DX: E11.649 Type 2 diabetes mellitus with hypoglycemia without coma (principal); J18.9 Pneumonia, unspecified organism; I21.4 Non-ST elevation (NSTEMI) myocardial infarction; G93.41 Metabolic encephalopathy; J96.01 Acute respiratory failure with hypoxia; E44.0 Moderate protein-calorie malnutrition; Z68.1 Body mass index [BMI] 19.9 or less, adult; J90 Pleural effusion, not elsewhere classified; N39.0 Urinary tract infection, site not specified; Z96.41 Presence of insulin pump (external) (internal); Z66 Do not resuscitate; N17.9 Acute kidney failure, unspecified; E11.22 Type 2 diabetes mellitus with diabetic chronic kidney disease; I12.9 Hypertensive chronic kidney disease with stage 1 through stage 4 chronic kidney disease, or unspecified chronic kidney disease; N18.9 Chronic kidney disease, unspecified; I25.10 Atherosclerotic heart disease of native coronary artery without angina pectoris; I25.2 Old myocardial infarction; F32.9 Major depressive disorder, single episode, unspecified; E03.9 Hypothyroidism, unspecified; E78.5 Hyperlipidemia, unspecified; Z87.891 Personal history of nicotine dependence; D50.9 Iron deficiency anemia, unspecified; E83.9 Disorder of mineral metabolism, unspecified; I27.20 Pulmonary hypertension, unspecified; R56.9 Unspecified convulsions; E86.0 Dehydration; J43.9 Emphysema, unspecified; B96.5 Pseudomonas (aeruginosa) (mallei) (pseudomallei) as the cause of diseases classified elsewhere
CPT/HCPCS: 32555; 36415; 36430; 36600; 71045; 71250; 76775; 80048; 80053; 80061; 80069; 80076; 81001; 81003; 82043; 82270; 82550; 82553; 82803; 82945; 82962; 83036; 83540; 83605; 83615; 83735; 83880; 84100; 84155; 84157; 84300; 84443; 84484; 85025; 85049; 85610; 85670; 85730; 86850; 86900; 86901; 86920; 87040; 87070; 87086; 87102; 87116; 88104; 88305; 89051; 93005; 93306; 94640; 94660; 94664; 97110; 97116; 97161; 97164; 97530; 99291-25